=== PATIENT | female | born 2000 | race Two or more races ===

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

== ENCOUNTER 2023-07-02 13:35 | Emergency (ER) | payer MEDICAID ==
[~2023-07-02] VITALS: Ht 160 cm; Wt 64.5 kg
[2023-07-02 14:40] VITALS: BP 119/77; PULSE 100; RESP 18; TEMP 98.1; O2SAT 98
[2023-07-02] MEDS ORDERED: diphenhdrAMINE HCL 50 MG/1 ML VL IM ONE (15:00)
[2023-07-02] MEDS ORDERED: METOCLOPRAMIDE HCL 5MG/ml INJ 2ml VIAL IM ONE (15:00)
[2023-07-02] MEDS ORDERED: KETOROLAC TROMETH 60MG/2ML VIAL IM ONE (15:00)
== END 2023-07-02 15:35 | disposition home or self-care (01) ==
LOC: ER 13:35
DX: R51.9 Headache, unspecified (principal); I10 Essential (primary) hypertension; E11.9 Type 2 diabetes mellitus without complications
CPT/HCPCS: 96372; 99284; J1200; J1885; J2765

== ENCOUNTER 2025-04-09 14:28 | Inpatient (IN) | payer MEDICAID ==
[~2025-04-09] VITALS: Ht 160 cm; Wt 71.7 kg
[2025-04-09] MEDS: SODIUM CHLORIDE 0.9% 2,000 ML IV ONE (16:00)
--- NOTE | 2025-04-09 16:09 | ED.PDOC ---
History of Present Illness(SKN HPI Comments A 24 YEAR OLD FEMALE PRESENTS TO THE ED WITH COMPLAINT OF LEFT BREAST PAIN, REDNESS, AND SWELLING. PATIENT STATES SHE HAS BEEN EXPERIENCING LEFT BREAST PAIN, SWELLING, REDNESS, AND HARDNESS FOR THE PAST 1 WEEK. PATIENT REPORTS SHE WENT TO AN URGENT CARE 5 DAYS AGO FOR THIS ISSUE WHERE SHE WAS PRESCRIBED KEFLEX, BUT NOTES THERE HAS BEEN NO IMPROVEMENT IN HER SYMPTOMS AND IS CONCERNED HER INFECTION IS WORSENING. PATIENT DENIES FEVER, CHILLS, SHORTNESS OF BREATH, CHEST PAIN, ABDOMINAL PAIN, NAUSEA, VOMITING, HEADACHE, OR OTHER COMPLAINTS. NO OTHER SYMPTOMS OR MODIFYING FACTORS AT THIS TIME. PATIENT IS ALERT, ORIENTED X 4, AND HAS STEADY GAIT. Chief Complaint: Breast pain Time Seen by MD: 14:42 Primary Care Provider: NONE History of Present Illness: Nurses Notes, Medications, Allergies Allergies: Coded Allergies: NO KNOWN ALLERGIES (Unverified , 12/06/10) Information Source: Patient Mode of Arrival: Ambulatory Severity: Moderate Timing: Days Duration: Since onset, Days Prehospital treatment: None Location: Other (LEFT BREAST) Mechanism: Spontaneous Onset Occurence: Indoors Object: None Condition of Object: None Retained Foreign Body: No Wound Type: None Immunization Status of Animal: NA Tetanus: UTD History of: None Associated Signs and Symptoms: Redness, Swelling, Pain Past Medical History PAST MEDICAL HISTORY: DM, HTN Surgical History: Denies all surgeries STAINED GLASS JOINER History: No Pertinent STAINED GLASS JOINER History Family History Family History: Reviewed,noncontributory to illness Social History Smoker: Non-Smoker Alcohol: Denies ETOH Use Drugs: Denies Drug Use Lives In: Home Constitutional: denies: chills, diaphoresis, fatigue, fever, malaise, sweats, weakness, others EENTM: denies: blurred vision, double vision, ear bleeding, ear discharge, ear drainage, ear pain, ear ringing, eye pain, eye redness, hearing loss, mouth pain, mouth swelling, nasal discharge, nose bleeding, nose congestion, nose pain, photophobia, tearing, throat pain, throat swelling, voice changes, others Respiratory: denies: cough, hemoptysis, orthopnea, SOB at rest, shortness of breath, SOB with excertion, stridor, wheezing, others Cardiovascular: denies: chest pain, dizzy spells, diaphoresis, Dyspnea on exertion, edema, irregular heart beat, left arm pain, lightheadedness, palpitations, PND, syncope, others Gastrointestinal: denies: abdomen distended, abdominal pain, blood streaked bowels, constipated, diarrhea, dysphagia, difficulty swallowing, hematemesis, melena, nausea, poor appetite, poor fluid intake, rectal bleeding, rectal pain, vomiting, others Genitourinary: denies: abnormal vagina bleeding, burning, dyspareunia, dysuria, flank pain, frequency, hematuria, incontinence, pain, , vagina discharge, urgency, others Neurological: denies: dizziness, fainting, headache, left sided numbness, left sided weakness, numbness, paresthesia, pre-existing deficit, right sided numbness, right sided weakness, seizure, speech problems, tingling, tremors, weakness, others Musculoskeletal: denies: back pain, gout, joint pain, joint swelling, muscle pain, muscle stiffness, neck pain, others Integumetry: reports: lumps (LEFT BREAST ), others (LEFT BREAST PAIN WITH REDNESS, SWELLING, AND HARDNESS); denies: bruises, change in color, change in hair/nails, dryness, laceration, lesions, rash, wounds Allergic/Immunocompromised: denies: Difficulty Healing, Frequent Infections, Hives, Itching, others Hematologic/Lymphatic: denies: anemia, blood clots, easy bleeding, easy bruising, swollen glands, others Endocrine: denies: excessive hunger, excessive sweating, excessive thirst, excessive urination, flushing, intolerance to cold, intolerance to heat, unexplained weight gain, unexplained weight loss, others Psychiatric: denies: anxiety, bipolar disorder, depression, hopeless, panic disorder, schizophrenia, sleepless, suicidal, others All Other Systems: Reviewed and Negative Physical Exam General Appearance: No Apparent Distress, Normal HEENT: Normal ENT Inspection, PERRL/EOMI, Pharynx Normal, TMs Normal Neck: Full Range of Motion, Non-Tender, Normal, Normal Inspection Respiratory: Chest Non-Tender, Lungs Clear, No Accessory Muscle Use, No Respiratory Distress, Normal Breath Sounds Cardiovascular: No Edema, No JVD, No Murmur, No Gallop, Normal Peripheral Pulses, Regular Rate/Rhythm Breast Exam: (L) Tenderness (A LARGE BUMP WITH LOCALIZED REDNESS, SWELLING AND HARDNESS ON LEFT LOWER BREAST REGION, NO OPEN WOUND AND PUS DRAINAGE. 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 ) Peripheral Pulses: 2+ carotid (R), 2+ carotid (L) Lymphatic: No Adenopathy Was a procedure done? Was a procedure done?: No Images 1 - Differential Diagnosis (INTG) Differential Diagnosis: N/A Differential Diagnosis: Atopic dermatitis, Cellulitis, Contact Dermatitis, Erysipelas, Other (FURUNCLE, ABSCESS) Differential Diagnosis: N/A Abscess: N/A Differential Diagnosis: N/A X-Ray, Labs, Meds, VS Vital Signs Date Time Temp Pulse Resp B/P (MAP) Pulse Ox O2 Delivery O2 Flow Rate FiO2 04/09/25 17:17 99.0 73 15 128/80 (96) 100 99.0 04/09/25 14:29 97.9 113 20 145/104 97 97.9 Lab Test 04/09/25 15:45 04/09/25 15:33 Range/Units Urine Color Pending Urine Clarity Pending Urine pH Pending Urine Specific [place] Pending Urine Protein Pending Urine Ketones Pending Urine Blood Pending Urine Nitrite Pending Urine Bilirubin Pending Urine Urobilinogen Pending Urine Leukocyte Esterase Pending Urine RBC Pending Urine Microscopic WBC Pending Urine Squamous Epithelial Cells Pending Urine Bacteria Pending Urine Glucose Pending Urine Test Negative Negative White Blood Count 9.8 4.4-10.8 10^3/uL Red Blood Count 4.93 4.0-5.20 10^6/uL Hemoglobin 14.3 12.2-16.2 g/dL Hematocrit 42.2 36.0-46.0 % Mean Corpuscular Volume 85.7 80.0-100.0 fL Mean Corpuscular Hemoglobin 29.0 28.0-32.0 pg Mean Corpuscular Hemoglobin Concent 33.9 32.0-36.0 g/dL Red Cell Distribution Width 12.2 11.8-14.3 % Platelet Count 359 140-450 10^3/uL Mean Platelet Volume 8.2 6.9-10.8 fL Neutrophils (%) (Auto) 74.7 37.0-80.0 % Lymphocytes (%) (Auto) 18.1 10.0-50.0 % Monocytes (%) (Auto) 5.8 0.0-12.0 % Eosinophils (%) (Auto) 1.1 0.0-7.0 % Basophils (%) (Auto) 0.3 0.0-2.0 % Neutrophils # (Auto) 7.3 1.6-8.6 10 ^3/uL Lymphocytes # (Auto) 1.8 0.4-5.4 10 ^3/uL Monocytes # (Auto) 0.6 0-1.3 10 ^3/uL Eosinophils # (Auto) 0.1 0-0.8 10 ^3/uL Basophils # (Auto) 0 0-0.2 10 ^3/uL Nucleated Red Blood Cells 0.1 % Sodium Level 130 L 136-145 mmol/L Potassium Level 4.1 3.5-5.1 mmol/L Chloride Level 94 L 98-107 mmol/L Carbon Dioxide Level 25 20-31 mmol/L Anion Gap 11 5-15 Blood Urea Nitrogen 7 L 9-23 mg/dL Creatinine 0.77 0.550-1.02 mg/dL Glomerular Filtration Rate Calc 111 >90 mL/min BUN/Creatinine Ratio 9.1 L 10.0-20.0 Serum Glucose 555 *H 74-106 mg/dL Lactic Acid Level 1.4 0.4-2.0 mmol/L Calcium Level 9.5 8.7-10.4 mg/dL Current Medications Medications (Trade) Dose Ordered Sig/Carmen Route Start Time Stop Time Status Last Admin Sodium Chloride 2,000 ml @ 1,000 mls/hr Q2H ONCE IV 04/09/25 16:30 04/09/25 18:29 04/09/25 16:00 PATIENT: ELIZABETH MONGECT: [id number]: [id number] : 2000 LOC: ER ROOM / BED: / AGE / SEX: 24 / F ADM STATUS: REG ER SERVICE 1523 ORDERING PHYSICIAN: MARIALUISA BUTLER PROCEDURE(s): LBRST - L BREAST ULTRASOUND REASON: LEFT BREAST PAIN AND SWELLING ORDER NUMBER(s): [id number], ACCESSION NUMBER(s): [id number] EXAM: US L BREAST ULTRASOUND INDICATION: LEFT BREAST PAIN AND SWELLING TECHNIQUE: Grayscale and color Doppler sonographic imaging evaluation of the region of concern. COMPARISON: None FINDINGS: In the area of concern at 03:00 insinuating complicated fluid collection with dominant area measuring 2.1 x 1.4 x 4.3 cm with overlying subcutaneous adipose tissue edema and appearance of fluid extension towards the skin. Overlying skin thickening. Surrounding hyperemia. Overall imaging findings favor abscess and mastitis. Consider appropriate treatment for abscess/mastitis with short-term imaging follow up after completion of the therapy, potentially in 2-3 weeks to assess for underlying mass. Referral to breast center recommended. IMPRESSION: 1. Presumed abscess/mastitis with dominant complicated fluid collection measuring up to 4.3 cm. 2. Consider short-term imaging follow-up after completion of therapy to exclude underlying mass. 3. BI-RADS 3-probably benign. 4. Recommendation: Short-term imaging follow up with ultrasound after appropriate completion of the clinical treatment ATED BY: SHAYNE GARCIA MD DICTATED DATE/TIME: 04/09/251657 SIGNED BY: SHAYNE GARCIA MD SIGNED DATE/TIME: 04/09/251657 CC: X-Ray, Labs, Meds, VS Comment EXTERNAL MEDICAL RECORDS REVIEWED: [NONE] INDEPENDENT HISTORIANS: [NONE] SOCIAL DETERMINANTS OF HEALTH: [NONE] LABS ORDERED: CBC, BMP, UA, URINE , BLOOD CULTURE, LACTIC ACID W/ REFLEX REVIEWED AND INTERPRETED RESULTS: NA 130, GLUCOSE 555 IMAGING ORDERED: US BREAST LT TREATMENTS ORDERED: NS 2L IV, ROCEPHIN 1G IV, CLINDAMYCIN 900MG IV, INSULIN 10 UNITS IV PROCEDURES PERFORMED: NONE CRITICAL CARE TIME: NONE I HAVE DISCUSSED THE PATIENT WITH THE ATTENDING PHYSICIAN, DR. GEORGE HE AGREES WITH THE PATIENT'S PLAN OF CARE. UPON MY PHYSICAL EXAMINATION, THE PATIENT HAD REDNESS, SWELLING, AND HARDNESS NOTED TO HER LEFT BREAST CONSISTENT WITH CELLULITIS OF LEFT BREAST, NO OPEN WOUND WAS SEEN, NO DRAINAGE WAS SEEN. LABS WERE DONE FOR THE PATIENT WHICH REVEALED A SODIUM 130 AND GLUCOSE OF 555. DUE TO THE PATIENT'S CLINICAL EXAM FINDINGS REVEALING FINDINGS CONSISTENT WITH CELLULITIS OF HER LEFT BREAST AND HER GLUCOSE SUGGESTING A UNCONTROLLED DIABETES, I HAVE DETERMINED THE PATIENT NEEDS TO BE ADMITTED FOR FURTHER TREATMENT AND EVALUATION. THE ON-CALL HOSPITALIST WILL BE CONTACTED FOR ADMISSION OF THIS PATIENT. Images Reviewed?: Images reviewed and evaluated by me Time of 1ST Reevaluation: 17:22 Reevaluation 1ST: Unchanged Patient Education/Counseling: Diagnosis, Treatment Family Education/Counseling: Diagnosis, Treatment SEPSIS Sepsis Screen Date sepsis recognized/suspect: Apr 09, 2025 Time Sepsis recognized/suspect: 1428 Recent Procedure: No On Antibiotic Therapy: No Respiratory Rate >20: No Heart Rate >90: No Temp<36 C (96.8 F) or >38.3 C: No SBP <90 or MAP <65 mmHG: No New Acute Mental Status Change: No Is the patient on CPAP, BIPAP,: No Physician Orders L Breast Ultrasound (04/09/25 15:23) Blood Culture (04/09/25 15:23) Urinalysis (04/09/25 15:28) Heplock Iv (04/09/25 ) Sodium Chloride 0.9% (04/09/25 16:30) Vital Signs Date Time Temp Pulse Resp B/P (MAP) Pulse Ox O2 Delivery O2 Flow Rate FiO2 04/09/25 17:17 99.0 73 15 128/80 (96) 100 99.0 04/09/25 14:29 97.9 113 20 145/104 97 97.9 Laboratory Tests Test 04/09/25 15:33 Lactic Acid Level 1.4 mmol/L (0.4-2.0) White Blood Count 9.8 10^3/uL (4.4-10.8) Medications Medications Dose Ordered Sig/Carmen Route Start Time Stop Time Status Last Admin Dose Admin Sodium Chloride 2,000 ml @ 1,000 mls/hr Q2H ONCE IV 04/09/25 16:30 04/09/25 18:29 04/09/25 16:00 Departure 1 Departure Time of Disposition: 17:30 Impression: Primary Impression: Cellulitis of left breast Additional Impressions: Uncontrolled diabetes mellitus Qualified Codes: E11.65 - Type 2 diabetes mellitus with hyperglycemia Failure of outpatient treatment Disposition: ADMITTED INPATIENT Condition: Serious Critical Care Note Critical Care Time?: No Stability Stability form required: Yes Unstable for transfer: Requires medication, ED Physician Assesment, Possible rapid decline I personally scribed for MARIALUISA BUTLER ([email or web address]) on 04/09/25 at 16:09. Electronically submitted by Yg Hairston ([employer] I personally scribed for MARIALUISA BUTLER ([email or web address]) on 04/09/25 at 16:13. Electronically submitted by Yg Hairston ([employer] I personally scribed for MARIALUISA BUTLER ([email or web address]) on 04/09/25 at 16:33. Electronically submitted by Yg Hairston ([employer] MARIALUISA BUTLER Apr 09, 2025 16:09
[2025-04-09 16:11] LABS: Hematocrit 42.2 % (36.0-46.0); Hemoglobin 14.3 g/dL (12.2-16.2); Mean Corpuscular Hemoglobin 29.0 pg (28.0-32.0); Mean Corpuscular Volume 85.7 fL (80.0-100.0); Nucleated Red Blood Cells % 0.1 %
[2025-04-09 16:17] LABS: Potassium 4.1 mmol/L (3.5-5.1)
[2025-04-09 16:18] LABS: Anion Gap 11 (5-15); Calcium 9.5 mg/dL (8.7-10.4); Carbon Dioxide 25 mmol/L (20-31)
[2025-04-09 16:19] LABS: Chloride 94 mmol/L (98-107); Sodium 130 mmol/L (136-145)
[2025-04-09 16:23] LABS: BUN/Creatinine Ratio 9.1 (10.0-20.0)
[2025-04-09 16:25] LABS: Blood Urea Nitrogen 7 mg/dL (9-23)
[2025-04-09 16:27] LABS: Glucose 555 mg/dL (74-106)
--- NOTE | 2025-04-09 17:01 | DVH ---
EXAM: US L BREAST ULTRASOUND INDICATION: LEFT BREAST PAIN AND SWELLING TECHNIQUE: Grayscale and color Doppler sonographic imaging evaluation of the region of concern. COMPARISON: None FINDINGS: In the area of concern at 03:00 insinuating complicated fluid collection with dominant area measuring 2.1 x 1.4 x 4.3 cm with overlying subcutaneous adipose tissue edema and appearance of fluid extension towards the skin. Overlying skin thickening. Surrounding hyperemia. Overall imaging findings favor abscess and mastitis. Consider appropriate treatment for abscess/mastitis with short-term imaging follow up after completion of the therapy, potentially in 2-3 weeks to assess for underlying mass. Referral to breast center recommended. IMPRESSION: 1. Presumed abscess/mastitis with dominant complicated fluid collection measuring up to 4.3 cm. 2. Consider short-term imaging follow-up after completion of therapy to exclude underlying mass. 3. BI-RADS 3-probably benign. 4. Recommendation: Short-term imaging follow up with ultrasound after appropriate completion of the clinical treatment
[2025-04-09 17:55] VITALS: PULSE 87; RESP 18; O2SAT 100
[2025-04-09] MEDS: InsuLIN REG 1unit/0.01ml Soln (100units/ml) IV ONE (18:01)
[2025-04-09] MEDS: CLINDAMYCIN 900MG IV 50 ML IV ONE (18:32)
[2025-04-09 18:48] LABS: Urine Protein, UAD Negative (Negative)
[2025-04-09] MEDS ORDERED: DEXTROSE (50%) 50ML SYRG IV PRN (22:15)
[2025-04-09] MEDS ORDERED: VANCOMYCIN PER PHARMACY 0 MG IV SCH (22:15)
--- NOTE | 2025-04-09 23:11 | DVH ---
EXAM: XY CHEST XRAY 1 VIEW CLINICAL HISTORY: chest pain TECHNIQUE: Single frontal view of the chest WID: COMPARISON: None FINDINGS: Lines and tubes: None Chest: The heart size and pulmonary vasculature is within normal limits. No pleural effusion, pneumothorax, or consolidation. The osseous structures are grossly intact. IMPRESSION: 1. No acute cardiopulmonary abnormality.
[2025-04-09] MEDS: VANCOMYCIN 1.5GM/250ML 250 ML IV ONE (23:38)
[2025-04-09] MEDS: INSULIN LANTUS (GLARGINE) 1 /0.01ml (100units/ml) SC ONE (23:41)
[2025-04-10] VITALS (7 sets, daily range): BP systolic 105–156; BP diastolic 63–97; PULSE 76–109; RESP 17–20; TEMP 97.6–98.2; O2SAT 96–100
[2025-04-10 00:12] LABS: Amphetamine Screen, Urine Neg (NEGATIVE); Barbiturate Scree,Urine Neg (NEGATIVE); Benzodiazephine Screen, Urine Neg (NEGATIVE); Cannabinoid Screen, Urine Neg (NEGATIVE); Cocaine Screen, Urine Neg (NEGATIVE); Opiate Scree,Urine Neg (NEGATIVE); Phencyclidine Screen, Urine Neg (NEGATIVE)
--- NOTE | 2025-04-10 00:52 | DVHHPRES ---
History of Present Illness Resident Creating Document: OCTAVIO SILVA History of Present Illness Patient is a 24-year-old female with past medical history of diabetes mellitus and HTN, presented to [facility] ED with complaint of left breast pain. The patient reports that the pain started one week ago and describes it as a sharp, shooting pain in her left breast associated with swelling, redness, and hardness. She reports having had a nipple piercing on the left side two weeks ago. The pain has progressively worsened since then. She reports visiting an urgent care clinic 5 days ago, where she was prescribed Keflex and swelling and redness have improved slightly. However, she notes no improvement in her symptoms and is concerned that the infection may be worsening. She denies fever, chills, shortness of breath, chest pain, abdominal pain, nausea, or vomiting. On evaluation in the ED, patient is afebrile, blood pressure is 145/104 mmHg. Initial labs show significant serum glucose 555 and hyponatremia. Breast US shows presumed abscess/mastitis with dominant complicated fluid collection measuring up to 4.3 cm. The patient was placed NPO, started on IV antibiotics and IV fluids. Patient is admitted for further evaluation and management. Cardiovascular: HTN Endocrine: Diabetes Past Surgical History: None Family History: None Smoke: No ALCOHOL: none Drugs: None Lives: with Family Review of Systems Review of Systems Eyes: No Pain, No Vision change, No Conjunctivae inflammation, No Eyelid i nflammation, No Other, No Redness ENT: No Ear pain, No Ear discharge, No Nose pain, No Nose discharge, No Nose congestion, No Mouth pain, No Mouth swelling, No Throat pain, No Throat swelling, No Other Cardiovascular: No Chest Pain, No Palpitations, No Orthopnea, No Paroxysmal No Dyspnea, No Edema, No Lt Headedness, No Other Respiratory: No Cough, No Dry, No Shortness of breath, No SOB with exertion, No Wheezing, No Hemoptysis, No Pleuritic Pain, No Sputum, No Other Gastrointestinal: No Nausea, No Vomiting, No Abdominal Pain, No Diarrhea, No Constipation, No Melena, No Hematochezia, No Other Genitourinary: No Dysuria, No Frequency, No Incontinence, No Hematuria, No Retention, No Other Musculoskeletal: No other, No neck pain, No shoulder pain, No arm pain, No back pain, No hand pain, No leg pain, No foot pain Skin: No Rash, No Lesions, No Jaundice, No Bruising, No Other. Left breast redness. Allergies: Coded Allergies: NO KNOWN ALLERGIES (Unverified , 12/06/10) Medications Current Medications Medications Dose Ordered Sig/Carmen Route Start Time Stop Time Status Last Admin Dose Admin Sodium Chloride 10 ml Q8HR IV 04/10/25 06:00 Hydromorphone HCl 0.25 mg Q4HPRN PRN IV 04/09/25 22:15 Diagnostic Test (Pha) 1 strip ACHS 04/10/25 07:00 Insulin Human Regular HS SC 04/10/25 22:00 Insulin Human Regular AC SC 04/10/25 07:00 Dextrose 50 ml UD PRN IV 04/09/25 22:15 Vancomycin HCl 0 ml @ 0 mls/hr PER PHARMACY IV 04/09/25 22:15 UNV Insulin Glargine 15 units HS SC 04/10/25 22:00 Exam Vital Signs Vital Signs Date Time Temp Pulse Resp B/P (MAP) Pulse Ox O2 Delivery O2 Flow Rate FiO2 04/09/25 23:54 98.1 98 16 134/89 (104) 100 98.1 04/09/25 17:55 Room Air* 0 21 Exam General Appearance: Cooperative. Well developed. Well nourished. NAD Head Exam: Normal inspection Neck Exam: Normal inspection. Non-tender. Normal alignment Pulmonary/Respiratory: Chest non-tender. Clear bilateral breath sounds, no crackles, no wheezing. Cardiovascular/Chest: Regular rate and rhythm. No murmurs. No JVD. Peripheral Pulses: 2+ Radial (R). 2+ Radial (L). 2+ Pedal (R). 2+ Pedal (L) Breast Exam: Left breast tenderness. Large bump with localized redness, swelling and hardness on left lower breast lesion, no open wound and pus drainage Abdominal Exam: Normal bowel sounds. Soft. normal abdomen, no visible veins, Nontender. No hepatospenomegaly. No masses Ankle Exam: Negative ankle edema Lower extremities: Negative lower extremity edema Neuro/Mental Status: A&O x4. Coherent. Thoughts/Psych: Normal thought pattern. Appropriate mood and affect. Good judgement and insight Skin Exam: Normal inspection. Normal color. Warm. Dry. Red bump with erythema, swelling and hardness on left lower breast wall Labs/Xrays Labs Test 04/09/25 17:57 04/09/25 15:45 04/09/25 15:33 Range/Units POC Glucose 328 H 70-106 mg/dl Urine Color Colorless Yellow Urine Clarity Clear Clear Urine pH 6.5 5.0-9.0 Urine Specific [place] 1.035 1.001-1.035 Urine Protein Negative Negative Urine Ketones Negative Negative Urine Blood 1+ H Negative /uL Urine Nitrite Negative Negative Urine Bilirubin Negative Negative Urine Urobilinogen Normal Negative mg/dL Urine Leukocyte Esterase Negative Negative /uL Urine RBC <1 0 - 4 /hpf Urine Microscopic WBC 1 0-5 /HPF Urine Squamous Epithelial Cells Few <5 /hpf Urine Bacteria Few H None Seen /hpf Urine Glucose 4+ H Normal mg/dL Urine Test Negative Negative Urine Opiates Screen Neg NEGATIVE Urine Fentanyl Screen Neg NEGATIVE Urine Barbiturates Screen Neg NEGATIVE Urine Phencyclidine Screen Neg NEGATIVE Urine Amphetamines Screen Neg NEGATIVE Urine Benzodiazepines Screen Neg NEGATIVE Urine Cocaine Screen Neg NEGATIVE Urine Cannabinoids Screen Neg NEGATIVE White Blood Count 9.8 4.4-10.8 10^3/uL Red Blood Count 4.93 4.0-5.20 10^6/uL Hemoglobin 14.3 12.2-16.2 g/dL Hematocrit 42.2 36.0-46.0 % Mean Corpuscular Volume 85.7 80.0-100.0 fL Mean Corpuscular Hemoglobin 29.0 28.0-32.0 pg Mean Corpuscular Hemoglobin Concent 33.9 32.0-36.0 g/dL Red Cell Distribution Width 12.2 11.8-14.3 % Platelet Count 359 140-450 10^3/uL Mean Platelet Volume 8.2 6.9-10.8 fL Neutrophils (%) (Auto) 74.7 37.0-80.0 % Lymphocytes (%) (Auto) 18.1 10.0-50.0 % Monocytes (%) (Auto) 5.8 0.0-12.0 % Eosinophils (%) (Auto) 1.1 0.0-7.0 % Basophils (%) (Auto) 0.3 0.0-2.0 % Neutrophils # (Auto) 7.3 1.6-8.6 10 ^3/uL Lymphocytes # (Auto) 1.8 0.4-5.4 10 ^3/uL Monocytes # (Auto) 0.6 0-1.3 10 ^3/uL Eosinophils # (Auto) 0.1 0-0.8 10 ^3/uL Basophils # (Auto) 0 0-0.2 10 ^3/uL Nucleated Red Blood Cells 0.1 % Sodium Level 130 L 136-145 mmol/L Potassium Level 4.1 3.5-5.1 mmol/L Chloride Level 94 L 98-107 mmol/L Carbon Dioxide Level 25 20-31 mmol/L Anion Gap 11 5-15 Blood Urea Nitrogen 7 L 9-23 mg/dL Creatinine 0.77 0.550-1.02 mg/dL Glomerular Filtration Rate Calc 111 >90 mL/min BUN/Creatinine Ratio 9.1 L 10.0-20.0 Serum Glucose 555 *H 74-106 mg/dL Lactic Acid Level 1.4 0.4-2.0 mmol/L Calcium Level 9.5 8.7-10.4 mg/dL Magnesium Level 1.9 1.6-2.6 mg/dL SEPSIS Sepsis Screen Date sepsis recognized/suspect: Apr 09, 2025 Time Sepsis recognized/suspect: 1428 Recent Procedure: No On Antibiotic Therapy: No Respiratory Rate >20: No Heart Rate >90: No Temp<36 C (96.8 F) or >38.3 C: No SBP <90 or MAP <65 mmHG: No New Acute Mental Status Change: No Is the patient on CPAP, BIPAP,: No Physician Orders Admit (04/09/25 22:13) Allergies (04/09/25 22:13) Code Status (04/09/25 22:13) Sodium Chloride Lock (Saline Lock Ns) (04/10/25 06:00) Complete Blood Count (04/10/25 04:00) Comprehensive Metabolic Panel (04/10/25 04:00) Cardiac Diet-2gna,Lofat,Lochol (04/10/25 Breakfast) Condition: Fair (04/09/25 22:13) Stat Ekg For Chest Pain (04/09/25 22:13) Notify Of Changes From Base (04/09/25 22:13) Black Top Machine Operator For 24 Hours (04/09/25 22:13) Emergency Dysrhythmia Protocol (04/09/25 22:13) Rhythm Strips Once Every Shift (04/09/25 22:13) Hydromorphone Injection (Dilaudid Inject (04/09/25 22:15) Glucose Blood (Accu-Chek Comfort Curve T (04/10/25 07:00) Insulin R (Human) (Insulin R) (04/10/25 22:00) Insulin R (Human) (Insulin R) (04/10/25 07:00) Dextrose 50% Syringe (04/09/25 22:15) Chest Xray 1 View (04/09/25 22:13) Mrsa Screen (04/09/25 22:13) Vancomycin Per Pharmacy (04/09/25 22:15) Insulin Lantus (Glargine) (Lantus) (04/10/25 22:00) Sodium Chloride 0.9% (04/09/25 22:15) * Surgical Consult (04/09/25 ) Npo After Midnight (04/09/25 22:13) Npo (Nothing By Mouth) Diet (04/10/25 Breakfast) Vital Signs Date Time Temp Pulse Resp B/P (MAP) Pulse Ox O2 Delivery O2 Flow Rate FiO2 04/09/25 23:54 98.1 98 16 134/89 (104) 100 98.1 04/09/25 17:55 87 18 100 Room Air* 0 21 04/09/25 17:55 98.9 87 18 131/97 (108) 100 98.9 04/09/25 17:17 99.0 73 15 128/80 (96) 100 99.0 Laboratory Tests Test 04/09/25 15:33 Lactic Acid Level 1.4 mmol/L (0.4-2.0) White Blood Count 9.8 10^3/uL (4.4-10.8) Medications Medications Dose Ordered Sig/Carmen Route Start Time Stop Time Status Last Admin Dose Admin Ceftriaxone Sodium 50 ml @ 100 mls/hr ONCE ONCE IV 04/09/25 16:30 04/09/25 16:59 DC 04/09/25 18:05 100 MLS/HR Clindamycin Phosphate 50 ml @ 50 mls/hr ONCE ONCE IV 04/09/25 16:30 04/09/25 17:29 DC 04/09/25 18:32 50 MLS/HR Insulin Glargine 15 units ONCE ONCE SC 04/09/25 22:15 04/09/25 22:38 DC 04/09/25 23:41 15 UNITS Sodium Chloride 2,000 ml @ 1,000 mls/hr Q2H ONCE IV 04/09/25 16:30 04/09/25 18:29 DC 04/09/25 16:00 1,000 MLS/HR Vancomycin HCl 250 ml @ 166.667 mls/hr ONCE ONCE IV 04/09/25 22:45 04/10/25 00:14 DC 04/09/25 23:38 166.667 MLS/HR Assessment/Plan Assessment/Plan Left breast abscess/mastitis Breast US: Presumed abscess/mastitis with dominant complicated fluid collection measuring up to 4.3 cm. BI-RADS 3-probably benign Chest X-ray: No acute cardiopulmonary abnormality. Surgical consult Vancomycin IV per pharmacy IV NS 100 MLS/HR one pain management with Dilaudid 0.25 MG IV q4h MRSA screen Blood culture Type 2 diabetes mellitus with hyperglycemia, uncontrolled Serum osmolality: 297.8 Serum glucose: 555 > 355 A1C: 12.9 POC glucose: 328 > 322 Moderate insulin SS Insulin Lantus 15 units SC HS Bedtime insulin scale sc hs protocol Diet: NPO Goals of care: Full code, discussed for >30 minutes on 04/09/25 Plan discussed with patient Plan discussed with Dr. Hernandez Plan discussed with: Patient, Spouse My Orders Orders - OCTAVIO SILVA RESIDENT Procedure Category Date Status Time Admit ADMIT 04/09/25 Transmitted 22:[address] [facility] 04/09/25 In Process 22:13 Code Status CODE 04/09/25 Transmitted 22:13 Sodium Chloride Lock PHA 04/10/25 In Process (Saline Lock Ns) 06:00 Complete Blood Count LAB 04/10/25 Logged 04:00 Comprehensive LAB 04/10/25 Logged Metabolic Panel 04:00 Cardiac DIET 04/10/25 Transmitted Diet-2gna,Lofat,Lochol Breakfast Condition: Fair CHONG 04/09/25 In Process 22:[address] Chest [facility] 04/09/25 In Process Pain 22:[address] [facility] 04/09/25 In Process From Base 22:13 Black Top Machine Operator For [facility] 04/09/25 In Process 24 Hours 22:[address] [facility] 04/09/25 In Process Protocol 22:[address] [facility] 04/09/25 In Process Every Shift 22:13 Hydromorphone PHA 04/09/25 In Process Injection (Dilaudid 22:15 Glucose Blood PHA 04/10/25 In Process (Accu-Chek Comfort 07:00 Insulin R (Human) PHA 04/10/25 In Process (Insulin R) 22:00 Insulin R (Human) PHA 04/10/25 In Process (Insulin R) 07:00 Dextrose 50% Syringe PHA 04/09/25 In Process 22:15 Chest Xray 1 View XY 04/09/25 Resulted 22:13 Mrsa Screen RAISA 04/09/25 Logged 22:13 Vancomycin Per PHA 04/09/25 Pending Pharmacy 22:15 Insulin Lantus PHA 04/10/25 In Process (Glargine) (Lantus) 22:00 Sodium Chloride 0.9% PHA 04/09/25 In Process 22:15 * Surgical Consult CONS 04/09/25 Transmitted Npo After Midnight CHONG 04/09/25 In Process 22:13 Npo (Nothing By DIET 04/10/25 Transmitted Mouth) Diet Breakfast Date of Service: Apr 09, 2025 Billing Provider: ADARSH HERNANDEZ MD Common Visit Codes: [id number] INP/OBS CARE (HIGH) Secondary Visit Codes: [id number] CARE PLAN 30 MINUTES OCTAVIO SILVA RESIDENT Apr 10, 2025 00:52
[2025-04-10] MEDS: SODIUM CHLORIDE 0.9% 1,000 ML IV ONE (02:32)
[2025-04-10 02:55] LABS: Hematocrit 40.4 % (36.0-46.0); Hemoglobin 13.6 g/dL (12.2-16.2); Mean Corpuscular Hemoglobin 28.8 pg (28.0-32.0); Mean Corpuscular Volume 85.6 fL (80.0-100.0); Nucleated Red Blood Cells % 0.0 %
[2025-04-10] MEDS ORDERED: DEXTROSE (50%) 50ML SYRG IV PRN (03:00)
[2025-04-10 03:13] LABS: Albumin 4.5 g/dL (3.2-4.8); Alkaline Phosphatase 110 U/L (46-116); Anion Gap 12 (5-15); BUN/Creatinine Ratio 9.8 (10.0-20.0); Bilirubin, Total 0.3 mg/dL (0.2-1.0); Calcium 9.4 mg/dL (8.7-10.4); Carbon Dioxide 23 mmol/L (20-31); Chloride 103 mmol/L (98-107); Potassium 3.8 mmol/L (3.5-5.1); Sodium 138 mmol/L (136-145); Total Protein 7.8 g/dL (5.7-8.2)
[2025-04-10 03:15] LABS: Alanine Aminotransferase < 9 U/L (7-40); Blood Urea Nitrogen 6 mg/dL (9-23); Glucose 355 mg/dL (74-106)
[2025-04-10] MEDS: ACCU-CHEK COMFORT CURVE STRIP VI SCH (04:04)
[2025-04-10] MEDS: InsuLIN REG 1unit/0.01ml Soln (100units/ml) SC SCH (04:04)
[2025-04-10] MEDS: SODIUM CHLOR 0.9% PF (SALINE LOCK) 10ML VIAL/SYR IV SCH (05:24)
[2025-04-10] MEDS ORDERED: InsuLIN REG 1unit/0.01ml Soln (100units/ml) SC SCH ×2 (07:00→22:00)
[2025-04-10] MEDS ORDERED: ACCU-CHEK COMFORT CURVE STRIP VI SCH (07:00)
[2025-04-10 08:04] LABS: INR 1.04 (0.9-1.15); Partial Thromboplastin Time 29.6 SEC (24.5-34.5); Prothrombin Time 11.0 sec (9.3-11.8)
--- NOTE | 2025-04-10 08:56 | DVHINCON2 ---
Date of service: Apr 10, 2025 Reason for Consultation left breast abscess History of Present Illness HPI 24-year-old female presented to [facility] ED with complaint of left breast pain. Patient states the pain started about 1 week ago however two weeks ago she had a nipple piercing placed. The pain is sharp 10/10. The swelling and pain progressively became worse and she went to the urgent care where she was prescribed Keflex however no improvement which prompted her to come to the ER for evaluation of the left breast pain and swelling. Past Medical History Cardiac: HTN Pulmonary: No pertinent Hx Central Nervous System: No pertinent Hx GI: No pertinent Hx Hemotology/Oncology: No pertinent Hx Hepatobiliary: No pertinent Hx Psychiatric: No pertinent Hx Musculoskeletal: No pertinent Hx Rheumotologic: No pertinent Hx Infectious Disease: No peritnent Hx ENT: No pertinent Hx Renal/: No pertinent Hx Endocrine: NIDDM Dermatology: No pertinent Hx Past Surgical History: No pertinent Hx Family History: No pertinent Hx Smoker: No Hx (Negative) Alocohol: None Drugs: None Lives with: With family Review of Systems Constitutional: No symptom reported Ears, Nose, & Throat: No symptom reported Eyes: No symptom reported Pulmonary/Respiratory: No symptom reported Cardiovascular: No symptom reported Gastrointestinal: No symptom reported Genitourinary: No symptom reported Musculoskeletal: No symptom reported Skin: Other (left breast pain and swelling) Psychiatric: No symptom reported Endocrine: No symptom reported Hemotologic/Lymphatic: No symptom reported H&P Exam Vital Signs Vital Signs Date Time Temp Pulse Resp B/P (MAP) Pulse Ox O2 Delivery O2 Flow Rate FiO2 04/10/25 08:00 90 13 109/71 (84) 97 04/10/25 04:00 98.0 98.0 04/10/25 02:30 Room Air* 0 21 General Appeara: Well developed, Obese Head Exam: Normal inspection Neck Exam: Normal inspection Eye Exam: bilateral eye Normal inspection Nasal Exam: Normal inspection Mouth: Normal Inspection Pulmonary/Respiratory: Normal inspection Cardiovascular/Chest: Normal inspection, Regular rate Abdominal Exam: Soft Neuro/Mental St: Alert, Oriented Appearance: Appropriate appearance Eye contact/ Speech: Cooperative, Good eye contact, Normal speech Thoughts/Psych: Normal thought pattern Skin Exam: Other (left breast erythema and tenderness ) Labs/Xrays Labs Test 04/10/25 07:39 04/10/25 03:59 04/10/25 02:17 04/09/25 15:45 Range/Units Prothrombin Time 11.0 9.3-11.8 sec Prothrombin Time INR 1.04 0.9-1.15 Activated Partial Thromboplast Time 29.6 24.5-34.5 SEC POC Glucose 322 H 70-106 mg/dl White Blood Count 10.4 4.4-10.8 10^3/uL Red Blood Count 4.72 4.0-5.20 10^6/uL Hemoglobin 13.6 12.2-16.2 g/dL Hematocrit 40.4 36.0-46.0 % Mean Corpuscular Volume 85.6 80.0-100.0 fL Mean Corpuscular Hemoglobin 28.8 28.0-32.0 pg Mean Corpuscular Hemoglobin Concent 33.6 32.0-36.0 g/dL Red Cell Distribution Width 12.5 11.8-14.3 % Platelet Count 345 140-450 10^3/uL Mean Platelet Volume 8.0 6.9-10.8 fL Neutrophils (%) (Auto) 72.3 37.0-80.0 % Lymphocytes (%) (Auto) 20.0 10.0-50.0 % Monocytes (%) (Auto) 6.1 0.0-12.0 % Eosinophils (%) (Auto) 1.3 0.0-7.0 % Basophils (%) (Auto) 0.3 0.0-2.0 % Neutrophils # (Auto) 7.5 1.6-8.6 10 ^3/uL Lymphocytes # (Auto) 2.1 0.4-5.4 10 ^3/uL Monocytes # (Auto) 0.6 0-1.3 10 ^3/uL Eosinophils # (Auto) 0.1 0-0.8 10 ^3/uL Basophils # (Auto) 0 0-0.2 10 ^3/uL Nucleated Red Blood Cells 0.0 % Sodium Level 138 # 136-145 mmol/L Potassium Level 3.8 3.5-5.1 mmol/L Chloride Level 103 98-107 mmol/L Carbon Dioxide Level 23 20-31 mmol/L Anion Gap 12 5-15 Blood Urea Nitrogen 6 L 9-23 mg/dL Creatinine 0.61 0.550-1.02 mg/dL Glomerular Filtration Rate Calc 129 >90 mL/min BUN/Creatinine Ratio 9.8 L 10.0-20.0 Serum Glucose 355 H 74-106 mg/dL Hemoglobin A1c 12.9 H <5.7 % A1C Calcium Level 9.4 8.7-10.4 mg/dL Total Bilirubin 0.3 0.2-1.0 mg/dL Aspartate Amino Transferase (AST) 11 L 13-40 U/L Alanine Aminotransferase (ALT) < 9 7-40 U/L Alkaline Phosphatase 110 46-116 U/L Total Protein 7.8 5.7-8.2 g/dL Albumin 4.5 3.2-4.8 g/dL Urine Color Colorless Yellow Urine Clarity Clear Clear Urine pH 6.5 5.0-9.0 Urine Specific [place] 1.035 1.001-1.035 Urine Protein Negative Negative Urine Ketones Negative Negative Urine Blood 1+ H Negative /uL Urine Nitrite Negative Negative Urine Bilirubin Negative Negative Urine Urobilinogen Normal Negative mg/dL Urine Leukocyte Esterase Negative Negative /uL Urine RBC <1 0 - 4 /hpf Urine Microscopic WBC 1 0-5 /HPF Urine Squamous Epithelial Cells Few <5 /hpf Urine Bacteria Few H None Seen /hpf Urine Glucose 4+ H Normal mg/dL Urine Test Negative Negative Urine Opiates Screen Neg NEGATIVE Urine Fentanyl Screen Neg NEGATIVE Urine Barbiturates Screen Neg NEGATIVE Urine Phencyclidine Screen Neg NEGATIVE Urine Amphetamines Screen Neg NEGATIVE Urine Benzodiazepines Screen Neg NEGATIVE Urine Cocaine Screen Neg NEGATIVE Urine Cannabinoids Screen Neg NEGATIVE Test 04/09/25 15:33 Range/Units Lactic Acid Level 1.4 0.4-2.0 mmol/L Magnesium Level 1.9 1.6-2.6 mg/dL Assessment/Plan Problem List: (1) Abscess of breast, left (2) Cellulitis of left breast (3) Failure of outpatient treatment Primary Diagnosis left breast abscess secondary to piercing Plan labs , image reports and notes reviewed patient complaint of swelling and and pain to the left breast one week after a piercing which became progressively worse and even though she was prescribed antibiotics by Urgent care there has been no improvement and the swelling and pain has become progressively worse. on exam left breast erythema, tender to palpation Ultrasound: IMPRESSION: 1. Presumed abscess/mastitis with dominant complicated fluid collection measuring up to 4.3 cm. Plan: continue IV antibiotics radiology consult for drainage of left breast abscess Plan discussed with: Patient, Other (Dr. Calderon ) Visit Coding Surgery Date of Service if different f: Apr 10, 2025 Billing Provider: VISHNU CALDERON MD Surgery Visit Codes: [id number] - INP CONSULT <80 MIN ORA CARPIO HUMAN RESOURCES REPRESENTATIVE Apr 10, 2025 08:56
[2025-04-10] MEDS: HYDROmorphone HCL 2 MG/ML VL/or syr IV PRN (13:07)
[2025-04-10] MEDS: VANCOMYCIN 1GM/250ML KIT 250 ML IV SCH (15:46)
--- NOTE | 2025-04-10 17:38 | DVHPN2 ---
Subjective Patient here for left breast pain found to with the +sepsis currently on IV antibiotics, IR will be consulted as per General surgery recommendations. 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 no motor deficit Medications Current Medications Medications Dose Ordered Sig/Carmen Route Start Time Stop Time Status Last Admin Dose Admin Sodium Chloride 10 ml Q8HR IV 04/10/25 06:00 04/10/25 13:07 10 ML Hydromorphone HCl 0.25 mg Q4HPRN PRN IV 04/09/25 22:15 04/10/25 13:07 0.25 MG Vancomycin HCl 0 ml @ 0 mls/hr PER PHARMACY IV 04/09/25 22:15 Insulin Glargine 15 units HS SC 04/10/25 22:00 Diagnostic Test (Pha) 1 strip IQ4HR 04/10/25 04:00 04/10/25 16:00 1 STRIP Insulin Human Regular IQ4HR SC 04/10/25 04:00 04/10/25 16:02 9 UNITS Dextrose 50 ml UD PRN IV 04/10/25 03:00 Vancomycin HCl 250 ml @ 250 mls/hr Q8H IV 04/10/25 16:00 04/10/25 15:46 250 MLS/HR Laboratory Results Laboratory Tests 04/10/25 02:17 Chemistry Test 04/10/25 02:17 Albumin 4.5 g/dL (3.2-4.8) Calcium Level 9.4 mg/dL (8.7-10.4) Total Protein 7.8 g/dL (5.7-8.2) Coagulation Test 04/10/25 07:39 Prothrombin Time 11.0 sec (9.3-11.8) Prothrombin Time INR 1.04 (0.9-1.15) Activated Partial Thromboplast Time 29.6 SEC (24.5-34.5) LFT Test 04/10/25 02:17 Alanine Aminotransferase (ALT) < 9 U/L (7-40) Alkaline Phosphatase 110 U/L (46-116) Aspartate Amino Transferase (AST) 11 U/L (13-40) L Total Bilirubin 0.3 mg/dL (0.2-1.0) HgA1c, TSH Test 04/10/25 02:17 Hemoglobin A1c 12.9 % A1C (<5.7) H Urinalysis Test 04/09/25 15:45 Urine Color Colorless (Yellow) Urine Clarity Clear (Clear) Urine pH 6.5 (5.0-9.0) Urine Specific [place] 1.035 (1.001-1.035) Urine Protein Negative (Negative) Urine Ketones Negative (Negative) Urine Blood 1+ /uL (Negative) H Urine Nitrite Negative (Negative) Urine Bilirubin Negative (Negative) Urine Urobilinogen Normal mg/dL (Negative) Urine Leukocyte Esterase Negative /uL (Negative) Urine RBC <1 /hpf (0 - 4) Urine Microscopic WBC 1 /HPF (0-5) Urine Squamous Epithelial Cells Few /hpf (<5) Urine Bacteria Few /hpf (None Seen) H Urine Glucose 4+ mg/dL (Normal) H Urine Test Negative (Negative) Microbiology Microbiology Date/Time Source Procedure Growth Status 04/10/25 02:30 Nose MRSA Screen - Final Complete 04/09/25 15:44 Blood Blood Culture - Preliminary NO GROWTH AFTER 24 HOURS OF INCUBATION. Resulted Assessment/Plan Assessment/Plan 24-year-old young female who had recently left nipple piercing presents to the hospital with left breast pain found to have 1. Left breast cellulitis/abscess/comfortable fluid collection 2. Left breast pain continue 1. 3. Insulin-dependent diabetes mellitus type 2 -IV antibiotics, IR consultation for drainage of abscess as per Neurosurgery recommendations. Plan of care discussed with the patient and patient family member at bedside they understand verbalized understanding and agreeable to plan. Plan discussed with: Patient, Spouse My Orders Orders - NATY ASHTON MD Procedure Category Date Status Time Consistent DIET 04/10/25 Transmitted [facility])Diabetes Lunch Date of Service: Apr 10, 2025 Billing Provider: NATY ASHTON MD Common Visit Codes: [id number] INP/OBS CARE(HIGH) NATY ASHTON MD Apr 10, 2025 17:38
[2025-04-10] MEDS: INSULIN LANTUS (GLARGINE) 1 /0.01ml (100units/ml) SC SCH (21:21)
[2025-04-11] VITALS (8 sets, daily range): BP systolic 103–118; BP diastolic 73–78; PULSE 81–99; RESP 16–18; TEMP 97.5–98; O2SAT 96–100
[2025-04-11 07:12] LABS: Hematocrit 36.7 % (36.0-46.0); Hemoglobin 12.6 g/dL (12.2-16.2); Mean Corpuscular Hemoglobin 28.9 pg (28.0-32.0); Mean Corpuscular Volume 84.2 fL (80.0-100.0); Nucleated Red Blood Cells % 0.1 %
--- NOTE | 2025-04-11 07:46 | DVHPN2 ---
Subjective Date Seen: Apr 11, 2025 Post op day Post op day: 0 Patient reports: No new complaints, Feels better Nursing reports: No new complaints General: Normal HNT: Normal Cardiovascular: Normal Respiratory: Normal Gastrointestinal: Normal Genitourinary: Normal Musculoskeletal: Normal Neurological: Normal Objective Vitals Vital Sign Date Time Temp Pulse Resp B/P (MAP) Pulse Ox O2 Delivery O2 Flow Rate FiO2 04/11/25 05:00 97.5 81 17 115/78 (90) 98 97.5 04/10/25 20:00 Room Air* 0 21 Total Intake and Output 04/10/25 04/10/25 04/11/25 15:00 23:00 07:00 Intake Total 118 ml 1250 ml Balance 118 ml 1250 ml Medications Current Medications Medications Dose Ordered Sig/Carmen Route Start Time Stop Time Status Last Admin Dose Admin Sodium Chloride 10 ml Q8HR IV 04/10/25 06:00 04/11/25 05:19 10 ML Hydromorphone HCl 0.25 mg Q4HPRN PRN IV 04/09/25 22:15 04/10/25 13:07 0.25 MG Vancomycin HCl 0 ml @ 0 mls/hr PER PHARMACY IV 04/09/25 22:15 Insulin Glargine 15 units HS SC 04/10/25 22:00 04/10/25 21:21 15 UNITS Diagnostic Test (Pha) 1 strip IQ4HR 04/10/25 04:00 04/11/25 04:36 1 STRIP Insulin Human Regular IQ4HR SC 04/10/25 04:00 04/11/25 00:00 3 UNITS Dextrose 50 ml UD PRN IV 04/10/25 03:00 Vancomycin HCl 250 ml @ 250 mls/hr Q8H IV 04/10/25 16:00 04/10/25 23:52 250 MLS/HR General: Normal Head/Eyes: Normal ENT: Normal Neck: Normal Lungs: Normal, Normal inspection Cardiovascular: Normal, Regular rate and rhythm Abdominal: Normal, Soft Skin: Other (LEFT BREAST ABSCESS ) Labs and Microbiology Laboratory Tests 04/11/25 06:09 04/10/25 02:17 Test 04/10/25 02:17 Range/Units Serum Glucose 355 H 74-106 mg/dL Ass/Plan Assessment/Plan patient feels better today less pain on left breast left breast slightly improved , not as tender as yesterday pending radiology consult for drainage of left breast abscess recommend to patient remove piercing plan: radiology consult for drainage warm compress to left breast continue IV antibiotics recommend remove piercing of left breast Prognosis: Excellent Plan discussed with patient, Dr. Calderon Visit Coding Surgery Date of Service if different f: Apr 11, 2025 Billing Provider: VISHNU CALDERON MD Surgery Visit Codes: [id number] INP/OBS CARE(HIGH) ORA CARPIO GARMENT INSPECTOR Apr 11, 2025 07:46
--- NOTE | 2025-04-11 16:28 | DVHPN2 ---
Subjective Patient here for left breast pain found to with the +sepsis currently on IV antibiotics, IR will be consulted as per General surgery recommendations. 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 Medications Current Medications Medications Dose Ordered Sig/Carmen Route Start Time Stop Time Status Last Admin Dose Admin Sodium Chloride 10 ml Q8HR IV 04/10/25 06:00 04/11/25 14:13 10 ML Hydromorphone HCl 0.25 mg Q4HPRN PRN IV 04/09/25 22:15 04/10/25 13:07 0.25 MG Vancomycin HCl 0 ml @ 0 mls/hr PER PHARMACY IV 04/09/25 22:15 Insulin Glargine 15 units HS SC 04/10/25 22:00 04/10/25 21:21 15 UNITS Diagnostic Test (Pha) 1 strip IQ4HR 04/10/25 04:00 04/11/25 12:00 1 STRIP Insulin Human Regular IQ4HR SC 04/10/25 04:00 04/11/25 12:51 9 UNITS Dextrose 50 ml UD PRN IV 04/10/25 03:00 Vancomycin HCl 250 ml @ 250 mls/hr Q8H IV 04/10/25 16:00 04/11/25 09:46 250 MLS/HR Laboratory Results Laboratory Tests 04/10/25 02:17 04/11/25 06:09 Urinalysis Test 04/09/25 15:45 Urine Color Colorless (Yellow) Urine Clarity Clear (Clear) Urine pH 6.5 (5.0-9.0) Urine Specific [place] 1.035 (1.001-1.035) Urine Protein Negative (Negative) Urine Ketones Negative (Negative) Urine Blood 1+ /uL (Negative) H Urine Nitrite Negative (Negative) Urine Bilirubin Negative (Negative) Urine Urobilinogen Normal mg/dL (Negative) Urine Leukocyte Esterase Negative /uL (Negative) Urine RBC <1 /hpf (0 - 4) Urine Microscopic WBC 1 /HPF (0-5) Urine Squamous Epithelial Cells Few /hpf (<5) Urine Bacteria Few /hpf (None Seen) H Urine Glucose 4+ mg/dL (Normal) H Urine Test Negative (Negative) Microbiology Microbiology Date/Time Source Procedure Growth Status 04/10/25 02:30 Nose MRSA Screen - Final Complete 04/09/25 15:44 Blood Blood Culture - Preliminary NO GROWTH AFTER 48 HOURS OF INCUBATION. Resulted Assessment/Plan Assessment/Plan 24-year-old young female who had recently left nipple piercing presents to the hospital with left breast pain found to have 1. Left breast cellulitis/abscess/comfortable fluid collection 2. Left breast pain continue 1. 3. Insulin-dependent diabetes mellitus type 2 -IV antibiotics, IR consultation for drainage of abscess as per Neurosurgery recommendations. Plan of care discussed with the patient and patient family member at bedside they understand verbalized understanding and agreeable to plan. Plan discussed with: Patient, Spouse Date of Service: Apr 11, 2025 Billing Provider: NATY ASHTON MD Common Visit Codes: [id number] INP/OBS CARE(HIGH) NATY ASHTON MD Apr 11, 2025 16:27
[2025-04-11] MEDS: PIPERACILLIN-TAZOB 3.375GM 100 ML IV SCH (17:36)
[2025-04-11] MEDS: ACETAMINOPHEN 325 MG TAB PO ONE (22:17)
[2025-04-12] VITALS (7 sets, daily range): BP systolic 91–134; BP diastolic 61–95; PULSE 81–102; RESP 17–18; TEMP 97.5–98.4; O2SAT 96–100
[2025-04-12] MEDS: VANCOMYCIN 1.25GM/250ML 250 ML IV SCH (00:25)
[2025-04-12 06:14] LABS: Hematocrit 35.2 % (36.0-46.0); Hemoglobin 12.0 g/dL (12.2-16.2); Mean Corpuscular Hemoglobin 28.7 pg (28.0-32.0); Mean Corpuscular Volume 84.3 fL (80.0-100.0); Nucleated Red Blood Cells % 0.0 %
[2025-04-12 06:28] LABS: Albumin 3.8 g/dL (3.2-4.8); Alkaline Phosphatase 84 U/L (46-116); Anion Gap 9 (5-15); BUN/Creatinine Ratio 20.0 (10.0-20.0); Bilirubin, Total 0.3 mg/dL (0.2-1.0); Blood Urea Nitrogen 13 mg/dL (9-23); Calcium 9.0 mg/dL (8.7-10.4); Carbon Dioxide 25 mmol/L (20-31); Chloride 105 mmol/L (98-107); Potassium 3.8 mmol/L (3.5-5.1); Sodium 139 mmol/L (136-145); Total Protein 6.6 g/dL (5.7-8.2)
[2025-04-12 06:31] LABS: Alanine Aminotransferase < 9 U/L (7-40); Glucose 236 mg/dL (74-106)
--- NOTE | 2025-04-12 10:51 | DVHPN2 ---
Subjective Date Seen: Apr 12, 2025 Post op day Post op day: 0 Patient reports: No new complaints, Other (no improvement from yesterday ) Nursing reports: No new complaints General: Normal HNT: Normal Cardiovascular: Normal Respiratory: Normal Gastrointestinal: Normal Genitourinary: Normal Musculoskeletal: Normal Neurological: Normal Objective Vitals Vital Sign Date Time Temp Pulse Resp B/P (MAP) Pulse Ox O2 Delivery O2 Flow Rate FiO2 04/12/25 09:00 98.4 102 17 134/95 (108) 100 98.4 04/11/25 20:00 Room Air* 0 21 Total Intake and Output 04/11/25 04/11/25 04/12/25 15:00 23:00 07:00 Intake Total 750 ml 900 ml Balance 750 ml 900 ml Medications Current Medications Medications Dose Ordered Sig/Carmen Route Start Time Stop Time Status Last Admin Dose Admin Sodium Chloride 10 ml Q8HR IV 04/10/25 06:00 04/12/25 05:59 10 ML Hydromorphone HCl 0.25 mg Q4HPRN PRN IV 04/09/25 22:15 04/10/25 13:07 0.25 MG Vancomycin HCl 0 ml @ 0 mls/hr PER PHARMACY IV 04/09/25 22:15 Insulin Glargine 15 units HS SC 04/10/25 22:00 04/11/25 21:46 15 UNITS Diagnostic Test (Pha) 1 strip IQ4HR 04/10/25 04:00 04/12/25 04:22 1 STRIP Insulin Human Regular IQ4HR SC 04/10/25 04:00 04/12/25 04:24 6 UNITS Dextrose 50 ml UD PRN IV 04/10/25 03:00 Piperacillin Sod/ Tazobactam Sod 100 ml @ 25 mls/hr Q6HR IV 04/11/25 18:00 04/12/25 05:49 25 MLS/HR Vancomycin HCl 250 ml @ 200 mls/hr Q8H IV 04/12/25 00:00 04/12/25 10:16 200 MLS/HR Ondansetron HCl 4 mg Q4HPRN PRN IV 04/12/25 10:15 UNV General: Normal Head/Eyes: Normal ENT: Normal Neck: Normal Lungs: Normal, Normal inspection Cardiovascular: Normal, Regular rate and rhythm Abdominal: Normal, Soft Skin: Other (LEFT BREAST ABSCESS ) Labs and Microbiology Laboratory Tests 04/12/25 04:48 Test 04/12/25 04:48 Range/Units Serum Glucose 236 H 74-106 mg/dL Ass/Plan Assessment/Plan patient feels better today less pain on left breast left breast slightly improved , not as tender as yesterday pending radiology consult for drainage of left breast abscess recommend to patient remove piercing plan: radiology consult for drainage warm compress to left breast continue IV antibiotics recommend remove piercing of left breast 04/12/2025 notes reviewed Subjective: - Reports that the affected area remains purple and hard, with no improvement noted. Assessment: - A radiology consult is pending to evaluate for possible drainage. 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
[2025-04-12] MEDS: fentaNYL CITRATE 100 MCG/2 ML VL IV ONE (11:15)
[2025-04-12] MEDS: MIDAZOLAM HCL 2MG/2ML 2ml VIAL (1mg/ml) IV ONE (11:15)
[2025-04-12] MEDS: ONDANSETRON HCL 4 MG/2 ML VIAL IV PRN (11:32)
[2025-04-12] MEDS: HYDROcodone-ACET 10/325MG TAB PO PRN (12:52)
--- NOTE | 2025-04-12 13:08 | DVH ---
US ULTRA GUIDED ABCESS DRAINAGE, HISTORY: LT BREAST ABSCESS PROCEDURE: An informed consent was obtained. The patient was placed supine on the interventional table. IV sedation was administered. The left breast abscess was localized with ultrasound and the overlying skin prepped with chlorhexidine Which was allowed to dry and draped in the usual sterile fashion. Time out was performed and infiltrated with 1% Xylocaine. With US guidance, 19-gauge centesis needle catheter was advanced into the fluid collection. Approximately 5 cc of thick purulent fluid was aspirated. No immediate complication was identified. SEDATION: Dr. Dionisio Bangura was personally responsible for the administration of moderate sedation during the procedure performed, including the use of an independent trained observer who had no other duties during the procedure. The drugs utilized were IV fentanyl and versed (see nursing log for details). The total time of supervision by the attending physician was approximately 30 minutes. FINDINGS: Limited US scan of through the left breast demonstrates a fluid collection in the subcutaneous tissue. Collection appears complex, which is decreased in size after aspiration. IMPRESSION: US guided left breast abscess aspiration with 5 mL purulent fluid removed.
--- NOTE | 2025-04-12 14:50 | DVH ---
Exam: CT CT AB PEL WO CON-NO ORAL OR IV History: abd pain Comparison Study: None TECHNIQUE: Multidetector CT of the abdomen AND PELVIS without IV contrast. Axial, coronal and sagittal multiplanar reformats were obtained from the axial data set by the technologist. Radiation Dose Information: CT Dose: CTDI volume is mGy. Dose-length product is mGy*cm FINDINGS: The lung bases are clear. Partially visualized heart is unremarkable. Asymmetric left breast skin thickening with hyperdense structures overlying the bilateral nipple. Hepatomegaly. Otherwise, liver, spleen, gallbladder, pancreas and adrenal glands unremarkable. Kidneys, and ureters unremarkable. Wall thickening of the minimally distended Urinary bladder. Intrauterine device is noted in place. Uterus and adnexa are otherwise unremarkable. Stomach is unremarkable. Small bowel loops are unremarkable. Appendix is not completely visualized with the visualized appendix unremarkable. Without complete visualization of the appendix, can not exclude acute appendicitis. Moderate to large amount of fecal material within the colon. No evidence of intraperitoneal free air or free fluid. No evidence of aortic aneurysm. No significant lymphadenopathy. Soft tissues unremarkable. No evidence of acute osseous abnormalities. IMPRESSION: Wall thickening of the Urinary bladder which may be from inadequate distention. Correlation with urinalysis is recommended to exclude cystitis. Asymmetric skin thickening of the left breast. No large drainable fluid collection is visualized. Moderate to large amount of fecal material within the colon.
--- NOTE | 2025-04-12 16:45 | DVHPN2 ---
Subjective Patient here for left breast pain found to with the +sepsis currently on IV antibiotics, IR will be consulted as per General surgery recommendations. 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 Medications Current Medications Medications Dose Ordered Sig/Carmen Route Start Time Stop Time Status Last Admin Dose Admin Sodium Chloride 10 ml Q8HR IV 04/10/25 06:00 04/12/25 14:00 10 ML Hydromorphone HCl 0.25 mg Q4HPRN PRN IV 04/09/25 22:15 04/10/25 13:07 0.25 MG Vancomycin HCl 0 ml @ 0 mls/hr PER PHARMACY IV 04/09/25 22:15 Insulin Glargine 15 units HS SC 04/10/25 22:00 04/11/25 21:46 15 UNITS Diagnostic Test (Pha) 1 strip IQ4HR 04/10/25 04:00 04/12/25 12:00 1 STRIP Insulin Human Regular IQ4HR SC 04/10/25 04:00 04/12/25 12:56 6 UNITS Dextrose 50 ml UD PRN IV 04/10/25 03:00 Piperacillin Sod/ Tazobactam Sod 100 ml @ 25 mls/hr Q6HR IV 04/11/25 18:00 04/12/25 12:51 25 MLS/HR Vancomycin HCl 250 ml @ 200 mls/hr Q8H IV 04/12/25 00:00 04/12/25 10:16 200 MLS/HR Ondansetron HCl 4 mg Q4HPRN PRN IV 04/12/25 10:15 04/12/25 11:32 4 MG Acetaminophen/ Hydrocodone Bitart 1 tab Q4HP PRN PO 04/12/25 12:15 11/10/25 12:52 1 TAB Laboratory Results Laboratory Tests 04/12/25 04:48 Chemistry Test 04/12/25 04:48 Albumin 3.8 g/dL (3.2-4.8) Calcium Level 9.0 mg/dL (8.7-10.4) Total Protein 6.6 g/dL (5.7-8.2) LFT Test 04/12/25 04:48 Alanine Aminotransferase (ALT) < 9 U/L (7-40) Alkaline Phosphatase 84 U/L (46-116) Aspartate Amino Transferase (AST) 10 U/L (13-40) L Total Bilirubin 0.3 mg/dL (0.2-1.0) Urinalysis Test 04/09/25 15:45 Urine Color Colorless (Yellow) Urine Clarity Clear (Clear) Urine pH 6.5 (5.0-9.0) Urine Specific [place] 1.035 (1.001-1.035) Urine Protein Negative (Negative) Urine Ketones Negative (Negative) Urine Blood 1+ /uL (Negative) H Urine Nitrite Negative (Negative) Urine Bilirubin Negative (Negative) Urine Urobilinogen Normal mg/dL (Negative) Urine Leukocyte Esterase Negative /uL (Negative) Urine RBC <1 /hpf (0 - 4) Urine Microscopic WBC 1 /HPF (0-5) Urine Squamous Epithelial Cells Few /hpf (<5) Urine Bacteria Few /hpf (None Seen) H Urine Glucose 4+ mg/dL (Normal) H Urine Test Negative (Negative) Microbiology Microbiology Date/Time Source Procedure Growth Status 04/10/25 02:30 Nose MRSA Screen - Final Complete 04/09/25 15:44 Blood Blood Culture - Preliminary NO GROWTH AFTER 72 HOURS OF INCUBATION. Resulted Assessment/Plan Assessment/Plan 24-year-old young female who had recently left nipple piercing presents to the hospital with left breast pain found to have 1. Left breast cellulitis/abscess/complicated fluid collection status post ultrasound-guided drainage 2. Left breast pain 3. Insulin-dependent diabetes mellitus type 2 -IV antibiotics, follow up breast fluid Gram stain and culture. Plan discussed with: Patient My Orders Orders - NATY ASHTON MD Procedure Category Date Status Time Ondansetron Hcl PHA 04/12/25 In Process (Zofran) 10:15 Ct Ab Pel Wo Con-No CT 04/12/25 Resulted Oral Or Iv 12:13 Hydrocodone-Acet PHA 04/12/25 In Process 10/325mg Tab ([place] 12:15 Urine Bacterial RAISA 04/12/25 Logged Culture 16:40 Date of Service: Apr 12, 2025 Billing Provider: NATY ASHTON MD Common Visit Codes: [id number] INP/OBS CARE(HIGH) NATY ASHTON MD Apr 12, 2025 16:45
[2025-04-13] VITALS (8 sets, daily range): BP systolic 111–127; BP diastolic 73–88; PULSE 84–97; RESP 16–18; TEMP 98.2–98.9; O2SAT 96–100
--- NOTE | 2025-04-13 17:10 | DVHPN2 ---
Subjective Patient here for left breast pain found to with the +sepsis currently on IV antibiotics, IR will be consulted as per General surgery recommendations. 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 Medications Current Medications Medications Dose Ordered Sig/Carmen Route Start Time Stop Time Status Last Admin Dose Admin Sodium Chloride 10 ml Q8HR IV 04/10/25 06:00 04/13/25 14:00 10 ML Hydromorphone HCl 0.25 mg Q4HPRN PRN IV 04/09/25 22:15 04/10/25 13:07 0.25 MG Vancomycin HCl 0 ml @ 0 mls/hr PER PHARMACY IV 04/09/25 22:15 Insulin Glargine 15 units HS SC 04/10/25 22:00 04/12/25 21:54 15 UNITS Diagnostic Test (Pha) 1 strip IQ4HR 04/10/25 04:00 04/13/25 12:21 1 STRIP Insulin Human Regular IQ4HR SC 04/10/25 04:00 04/13/25 12:21 6 UNITS Dextrose 50 ml UD PRN IV 04/10/25 03:00 Piperacillin Sod/ Tazobactam Sod 100 ml @ 25 mls/hr Q6HR IV 04/11/25 18:00 04/13/25 12:47 25 MLS/HR Ondansetron HCl 4 mg Q4HPRN PRN IV 04/12/25 10:15 04/13/25 11:40 4 MG Acetaminophen/ Hydrocodone Bitart 1 tab Q4HP PRN PO 04/12/25 12:15 04/13/25 10:11 1 TAB Laboratory Results Laboratory Tests 04/12/25 04:48 04/13/25 05:34 Urinalysis Test 04/09/25 15:45 04/12/25 16:47 Urine Color Colorless (Yellow) Urine Clarity Clear (Clear) Urine pH 6.5 (5.0-9.0) Urine Specific [place] 1.035 (1.001-1.035) Urine Protein Negative (Negative) Urine Ketones Negative (Negative) Urine Blood 1+ /uL (Negative) H Urine Nitrite Negative (Negative) Urine Bilirubin Negative (Negative) Urine Urobilinogen Normal mg/dL (Negative) Urine Leukocyte Esterase Negative /uL (Negative) Urine RBC <1 /hpf (0 - 4) Urine Microscopic WBC 1 /HPF (0-5) Urine Squamous Epithelial Cells Few /hpf (<5) Urine Bacteria Few /hpf (None Seen) H Urine Glucose 4+ mg/dL (Normal) H Urine Test Negative (Negative) Microbiology Microbiology Date/Time Source Procedure Growth Status 04/12/25 16:47 Voided Urine Urine Culture - Preliminary No growth Resulted 04/12/25 11:55 Aspirate Gram Stain - Final Resulted 04/12/25 11:55 Aspirate Body Fluid Culture - Preliminary Resulted 04/10/25 02:30 Nose MRSA Screen - Final Complete 04/09/25 15:44 Blood Blood Culture - Preliminary NO GROWTH AFTER 72 HOURS OF INCUBATION. Resulted Assessment/Plan Assessment/Plan 24-year-old young female who had recently left nipple piercing presents to the hospital with left breast pain found to have 1. Left breast cellulitis/abscess/complicated fluid collection status post ultrasound-guided drainage 2. Left breast pain 3. Insulin-dependent diabetes mellitus type 2 -IV antibiotics, fluid shows evidence of Gram-positive cocci in clusters and chains,. Culture sensitivity still pending. Plan discussed with: Patient Date of Service: Apr 13, 2025 Billing Provider: NATY ASHTON MD Common Visit Codes: [id number] INP/OBS CARE(HIGH) NATY ASHTON MD Apr 13, 2025 17:10
[2025-04-14 05:00] VITALS: BP 118/85; PULSE 83; RESP 16; TEMP 97.6; O2SAT 98
[2025-04-14 08:47] VITALS: BP 110/83; PULSE 88; RESP 16; TEMP 98.6; O2SAT 99
--- NOTE | 2025-04-14 11:22 | DVHPN2 ---
Subjective Date Seen: Apr 14, 2025 Post op day Post op day: 0 Patient reports: No new complaints, Other (left breast pain improving ) Nursing reports: No new complaints General: Normal HNT: Normal Cardiovascular: Normal Respiratory: Normal Gastrointestinal: Normal Genitourinary: Normal Musculoskeletal: Normal Neurological: Normal Objective Vitals Vital Sign Date Time Temp Pulse Resp B/P (MAP) Pulse Ox O2 Delivery O2 Flow Rate FiO2 04/14/25 08:47 98.6 88 16 110/83 (92) 99 98.6 04/14/25 08:00 Room Air* 0 21 Total Intake and Output 04/13/25 04/13/25 04/14/25 15:00 23:00 07:00 Intake Total 1200 ml 250 ml Balance 1200 ml 250 ml Medications Current Medications Medications Dose Ordered Sig/Carmen Route Start Time Stop Time Status Last Admin Dose Admin Sodium Chloride 10 ml Q8HR IV 04/10/25 06:00 04/14/25 05:15 10 ML Hydromorphone HCl 0.25 mg Q4HPRN PRN IV 04/09/25 22:15 04/10/25 13:07 0.25 MG Vancomycin HCl 0 ml @ 0 mls/hr PER PHARMACY IV 04/09/25 22:15 Insulin Glargine 15 units HS SC 04/10/25 22:00 04/13/25 22:10 15 UNITS Diagnostic Test (Pha) 1 strip IQ4HR 04/10/25 04:00 04/14/25 08:08 1 STRIP Insulin Human Regular IQ4HR SC 04/10/25 04:00 04/14/25 05:14 3 UNITS Dextrose 50 ml UD PRN IV 04/10/25 03:00 Piperacillin Sod/ Tazobactam Sod 100 ml @ 25 mls/hr Q6HR IV 04/11/25 18:00 04/14/25 06:03 25 MLS/HR Ondansetron HCl 4 mg Q4HPRN PRN IV 04/12/25 10:15 04/13/25 22:11 4 MG Acetaminophen/ Hydrocodone Bitart 1 tab Q4HP PRN PO 04/12/25 12:15 04/13/25 10:11 1 TAB General: Normal Head/Eyes: Normal ENT: Normal Neck: Normal Lungs: Normal, Normal inspection Cardiovascular: Normal, Regular rate and rhythm Abdominal: Normal, Soft Skin: Other (LEFT BREAST ABSCESS ) Labs and Microbiology Laboratory Tests 04/14/25 05:04 04/12/25 04:48 Test 04/12/25 04:48 Range/Units Serum Glucose 236 H 74-106 mg/dL Ass/Plan Assessment/Plan patient feels better today less pain on left breast left breast slightly improved , not as tender as yesterday pending radiology consult for drainage of left breast abscess recommend to patient remove piercing plan: radiology consult for drainage warm compress to left breast continue IV antibiotics recommend remove piercing of left breast 04/12/2025 notes reviewed Subjective: - Reports that the affected area remains purple and hard, with no improvement noted. Assessment: - A radiology consult is pending to evaluate for possible drainage. 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
[2025-04-14 12:50] VITALS: BP 118/85; PULSE 92; RESP 17; TEMP 97.6; O2SAT 100
[2025-04-14] MEDS ORDERED: AUG875T PO (14:46)
[2025-04-14] MEDS ORDERED: DOXY-286 PO (14:46)
--- NOTE | 2025-04-14 14:57 | DVHDS2 ---
Discharge Summary Date of Admission Apr 09, 2025 at 22:13 Date of Discharge: Apr 14, 2025 Labs/Diagnostic Data: Laboratory Results Test 04/14/25 11:27 04/14/25 05:04 04/12/25 23:08 04/12/25 16:47 POC Glucose 215 mg/dl (70-106) Creatinine 2.54 mg/dL (0.550-1.02) Glomerular Filtration Rate Calc 27 mL/min (>90) Random Vancomycin Level 18.6 ug/mL (5-10) Vancomycin Level Trough 25.6 ug/mL (5-10) Urine Test Negative (Negative) Test 04/12/25 11:55 04/12/25 04:48 04/10/25 07:39 04/10/25 02:17 White Blood Count 8.3 10^3/uL (4.4-10.8) Red Blood Count 4.17 10^6/uL (4.0-5.20) Hemoglobin 12.0 g/dL (12.2-16.2) Hematocrit 35.2 % (36.0-46.0) Mean Corpuscular Volume 84.3 fL (80.0-100.0) Mean Corpuscular Hemoglobin 28.7 pg (28.0-32.0) Mean Corpuscular Hemoglobin Concent 34.1 g/dL (32.0-36.0) Red Cell Distribution Width 12.3 % (11.8-14.3) Platelet Count 310 10^3/uL (140-450) Mean Platelet Volume 8.2 fL (6.9-10.8) Neutrophils (%) (Auto) 66.4 % (37.0-80.0) Lymphocytes (%) (Auto) 25.7 % (10.0-50.0) Monocytes (%) (Auto) 5.7 % (0.0-12.0) Eosinophils (%) (Auto) 1.9 % (0.0-7.0) Basophils (%) (Auto) 0.3 % (0.0-2.0) Neutrophils # (Auto) 5.5 10 ^3/uL (1.6-8.6) Lymphocytes # (Auto) 2.1 10 ^3/uL (0.4-5.4) Monocytes # (Auto) 0.5 10 ^3/uL (0-1.3) Eosinophils # (Auto) 0.2 10 ^3/uL (0-0.8) Basophils # (Auto) 0 10 ^3/uL (0-0.2) Nucleated Red Blood Cells 0.0 % Sodium Level 139 mmol/L (136-145) Potassium Level 3.8 mmol/L (3.5-5.1) Chloride Level 105 mmol/L (98-107) Carbon Dioxide Level 25 mmol/L (20-31) Anion Gap 9 (5-15) Blood Urea Nitrogen 13 mg/dL (9-23) BUN/Creatinine Ratio 20.0 (10.0-20.0) Serum Glucose 236 mg/dL (74-106) Calcium Level 9.0 mg/dL (8.7-10.4) Total Bilirubin 0.3 mg/dL (0.2-1.0) Aspartate Amino Transferase (AST) 10 U/L (13-40) Alanine Aminotransferase (ALT) < 9 U/L (7-40) Alkaline Phosphatase 84 U/L (46-116) Total Protein 6.6 g/dL (5.7-8.2) Albumin 3.8 g/dL (3.2-4.8) Prothrombin Time 11.0 sec (9.3-11.8) Prothrombin Time INR 1.04 (0.9-1.15) Activated Partial Thromboplast Time 29.6 SEC (24.5-34.5) Hemoglobin A1c 12.9 % A1C (<5.7) Test 04/09/25 15:45 04/09/25 15:33 Urine Color Colorless (Yellow) Urine Clarity Clear (Clear) Urine pH 6.5 (5.0-9.0) Urine Specific [place] 1.035 (1.001-1.035) Urine Protein Negative (Negative) Urine Ketones Negative (Negative) Urine Blood 1+ /uL (Negative) Urine Nitrite Negative (Negative) Urine Bilirubin Negative (Negative) Urine Urobilinogen Normal mg/dL (Negative) Urine Leukocyte Esterase Negative /uL (Negative) Urine RBC <1 /hpf (0 - 4) Urine Microscopic WBC 1 /HPF (0-5) Urine Squamous Epithelial Cells Few /hpf (<5) Urine Bacteria Few /hpf (None Seen) Urine Glucose 4+ mg/dL (Normal) Urine Opiates Screen Neg (NEGATIVE) Urine Fentanyl Screen Neg (NEGATIVE) Urine Barbiturates Screen Neg (NEGATIVE) Urine Phencyclidine Screen Neg (NEGATIVE) Urine Amphetamines Screen Neg (NEGATIVE) Urine Benzodiazepines Screen Neg (NEGATIVE) Urine Cocaine Screen Neg (NEGATIVE) Urine Cannabinoids Screen Neg (NEGATIVE) Lactic Acid Level 1.4 mmol/L (0.4-2.0) Magnesium Level 1.9 mg/dL (1.6-2.6) Other Laboratory Tests 04/14/25 05:04 04/12/25 04:48 Brief Hx & Hospital Course: 24-year-old young female who had recently left nipple piercing presents to the hospital with left breast pain found to have left breast cellulitis and suspected abscess. Eventually General surgery was consulted who recommended IR consultation. IR drain the abscess only 5 mL was removed. Patient's culture came back positive for Streptococcus and Staph aureus. Patient was given broad- spectrum IV antibiotics during the hospital stay including vancomycin and Zosyn which was discontinued. Patient will be given Augmentin and doxycycline in case Staph aureus is MRSA although is still pending. Patient is requesting to go home patient is being discharged under stable condition on 2 g sodium low- cholesterol 1800 ADA diet and p.o. antibiotics. Condition at Discharge: Stable Final Diagnosis/Problems List 24-year-old young female who had recently left nipple piercing presents to the hospital with left breast pain found to have 1. Left breast cellulitis/abscess/complicated fluid collection status post ultrasound-guided drainage 2. Left breast pain 3. Insulin-dependent diabetes mellitus type 2 Discharge Disposition: Home SNF Discharge Will this Physician continue t: No Discharge Instruct/Medications Diet: See Comment Diet comment: 1800 ADA diet Activity: No Restrictions, As Tolerated Follow Up/Referral: Please follow up with the PCP in one week Follow up with the general surgery in 1-2 weeks Medications: Augmentin and doxycycline as prescribed. New Medications: Amoxicillin & Pot Clavulanate (Augmentin Tablet) 875 Mg Tb 875 MG PO BID for 7 Days, #14 TAB Doxycycline Hyclate (Doxycycline Hyclate) 100 Mg Tab 1 TAB PO BID, #14 TAB Scheduled Amoxicillin & Pot Clavulanate (Augmentin Tablet), 875 MG PO BID Doxycycline Hyclate (Doxycycline Hyclate), 1 TAB PO BID Discharge Statement: "Patient was advised to return to the ER or call 911 if any headaches, dizziness, shortness of breath, chest pain, abdominal pain, bleeding, fevers, or worsening of medical condition. Patient was counseled about treatment plan, medications, possible side effects, patientverbalized understanding. All questions were answered to the best of my ability. This discharge took greater then 30 minutes in planning, reviewing documentation, counseling the patient, and discussing with other team members." ASSESSMENT ASSESSMENT Assessment 24-year-old young female who had recently left nipple piercing presents to the hospital with left breast pain found to have 1. Left breast cellulitis/abscess/complicated fluid collection status post ultrasound-guided drainage 2. Left breast pain 3. Insulin-dependent diabetes mellitus type 2 Date of Service: Apr 14, 2025 Billing Provider: NATY ASHTON MD Common Visit Codes: 74399-QXJ/[id number] DISCH DAY >30min NATY ASHTON MD Apr 14, 2025 14:57
[2025-04-14] MEDS ORDERED: PIPERACILLIN-TAZOB 3.375GM 100 ML IV SCH (22:00)
== END 2025-04-14 15:54 | disposition home or self-care (01) | DRG 385 ==
LOC: ER 14:28 → OVERFLOW 22:13 → WEST WING 04-10 18:11
PROVIDERS: ADMIT Internal Medicine; ATTEND Internal Medicine
PROC: 0H9U3ZZ Drainage of Left Breast, Percutaneous Approach (ICD-10-PCS; principal; 2025-04-12)
DX: N61.1 Abscess of the breast and nipple (principal); N17.0 Acute kidney failure with tubular necrosis; E11.65 Type 2 diabetes mellitus with hyperglycemia; I10 Essential (primary) hypertension; E87.1 Hypo-osmolality and hyponatremia; Z79.84 Long term (current) use of oral hypoglycemic drugs; Z79.4 Long term (current) use of insulin
CPT/HCPCS: 10060; 36415; 71045; 74176; 75989; 76642; 80048; 80053; 80202; 80307; 81001; 81025; 82565; 82962; 83036; 83605; 83735; 85025; 85610; 85730; 86850; 86900; 86901; 87040; 87071; 87077; 87081; 87086; 87186; 87205; 96360; 96361; G0378; J1815; J2250; J2405; J2543; J3490